=== PATIENT | male | born 1975 | race Caucasian/White ===

== ENCOUNTER → 2020-07-21 12:59 | Outpatient (CLI) | payer OTHER, SELFPAY ==
--- NOTE | ~2020-07-21 | XR_ITS ---
EXAMINATION: XR chest 2V EXAM DATE: 07/21/2020 14:19 INDICATION: Renal cell carcinoma of left kidney. TECHNIQUE: Frontal and lateral projections of the chest obtained and reviewed. There is no prior devi dy for comparison. FINDINGS: Left basilar granuloma. The lungs are otherwise clear. There are no pleural effusions. T he cardiomediastinal silhouette is within normal limits. There is no pneumothorax suspected. There are no osteoblastic or osteolytic lesions identified. IMPRESSION: No acute cardiopulmonary findings. Reviewed, dictated and finalized at location B. MACHINE OPERATOR
--- NOTE | ~2020-07-21 | MR_ITS ---
EXAMINATION: MR abdomen wo/w con DATE: 07/21/2020 14:07 INDICATION: Renal cell carcinoma of left kidney. TECHNIQUE: Magnetic resonance imaging (MRI) of the abdomen was performed without and with 20 mL Multi Velma intravenous contrast. Sequences included coronal T2-weighted FS FSE, coronal and axial FIESTA F S, coronal LAVA-flex, axial LAVA, axial T2-weighted FSE, axial T1-weighted dual-echo FSPGR, axial STI R FSE, and axial DWI. Postcontrast sequences included coronal LAVA-flex and a time course of axial LA VA. COMPARISON: None. FINDINGS: There is diffuse hepatic steatosis. The gallbladder is absent. There is an annular pancreas. The sple en and adrenal glands are normal. There is a 6 mm cyst in right kidney. There are changes of partial left nephrectomy. There are no dilated loops of bowel. There are no pathologically enlarged lymph nod es. There is no free intraperitoneal fluid. IMPRESSION: 1. Changes of partial left nephrectomy. No recurrent or residual neoplasm. 2. Diffuse hepatic steatosis. Reviewed, dictated and finalized at location A. TIVE SERVICES SPECIALIST
[2020-07-21 13:47] LABS: Estimated Glomerular Filt Rate > 60
== END ==
PROVIDERS: PCP Family Medicine
DX: C64.2 Malignant neoplasm of left kidney, except renal pelvis (principal); Z90.5 Acquired absence of kidney; K76.0 Fatty (change of) liver, not elsewhere classified
CPT/HCPCS: 71046; 74183; A9577

== ENCOUNTER → 2021-07-27 09:39 | Outpatient (CLI) | payer OTHER, SELFPAY ==
--- NOTE | ~2021-07-27 | MR_ITS ---
EXAMINATION: MR abdomen wo/w con DATE: 07/27/2021 10:48 INDICATION: Follow-up left kidney renal cell carcinoma post partial nephrectomy TECHNIQUE: Magnetic resonance imaging (MRI) of the abdomen was performed without and with 20 mL Multi rosario intravenous contrast. Sequences included coronal T2-weighted SS-FSE, coronal and axial FS 2D-F IESTA, axial STIR FSE, axial T2-weighted SS-FSE, axial T2-weighted FS SS-FSE, axial diffusion-weighte d SE, axial dual-echo T1-weighted FSPGR, and axial and coronal T1-weighted LAVA. Postcontrast axial T 1-weighted LAVA images were obtained in a time course. Postcontrast coronal T1-weighted LAVA images w ere obtained. COMPARISON: 07/21/2020 FINDINGS: Heart size is normal. No pericardial or pleural effusion. Cholecystectomy clips at the gallbladder fo ssa. Liver, spleen, pancreas and bilateral adrenal glands are normal. 6 mm T2 hyperintense nonenhanci ng right renal cyst. Stable appearance of postoperative change of prior partial nephrectomy at the up per pole the left kidney. No new nodular enhancing soft tissue to suggest residual, recurrent or meta static disease. No pathologically enlarged abdominal lymphadenopathy. Visualized portions of the timothy ls are unremarkable. Mild to moderate lumbar spondylosis with fibrovascular and fibrofatty degenerati ve endplate changes. Bone marrow signal otherwise normal with no evident pathologic marrow replacing process. IMPRESSION: 1. Stable appearance of change of prior partial left nephrectomy. No residual, recurrent or metastati c disease. Reviewed, dictated and finalized at location A. OPERATOR IMPRESSION: 1. Stable appearance of change of prior partial left nephrectomy. No residual, recurrent or metastatic disease.
[2021-07-27 10:17] LABS: Estimated Glomerular Filt Rate > 60
== END ==
DX: Z90.49 Acquired absence of other specified parts of digestive tract (principal); N28.1 Cyst of kidney, acquired; M47.816 Spondylosis without myelopathy or radiculopathy, lumbar region
CPT/HCPCS: 74183; A9577

== ENCOUNTER → 2022-06-30 07:58 | Outpatient (CLI) | payer SELFPAY ==
--- NOTE | ~2022-06-30 | MR_ITS ---
EXAMINATION: MR abdomen wo/w con DATE: 06/30/2022 09:28 INDICATION: Left renal cell carcinoma resected in December 2019 TECHNIQUE: Magnetic resonance imaging (MRI) of the abdomen was performed without and with 20 mL Multi rosario intravenous contrast. Sequences included coronal T2-weighted SS-FSE, coronal and axial FS 2D-F IESTA, axial STIR FSE, axial T2-weighted SS-FSE, axial T2-weighted FS SS-FSE, axial diffusion-weighte d SE, axial dual-echo T1-weighted FSPGR, and axial and coronal T1-weighted LAVA. Postcontrast axial T 1-weighted LAVA images were obtained in a time course. Postcontrast coronal T1-weighted LAVA images w ere obtained. COMPARISON: None. FINDINGS: Heart size is normal. No pericardial or pleural effusion. Mild dependent atelectasis in the bilateral lower lobes. Cholecystectomy clips the gallbladder fossa. Liver, spleen, pancreas and bilateral adre nal glands are normal. 8 mm T2 hyperintense nonenhancing right renal cyst. Stable appearance of posto perative change of prior partial nephrectomy at the upper pole the left kidney. No new nodular enhanc ing soft tissue to suggest residual, recurrent or metastatic disease. No pathologically enlarged abdo puja lymphadenopathy. Visualized portion of the bowels are normal. Mild to moderate lumbar spondylos is with fibrovascular and fibrofatty degenerative endplate changes. No pathologic marrow replacing pr ocess. IMPRESSION: 1. Stable appearance of changes of prior partial left nephrectomy. No residual, recurrent or metastat ic disease. Reviewed, dictated and finalized at location A. EP MECHANIC IMPRESSION: 1. Stable appearance of changes of prior partial left nephrectomy. No residual, recurrent or metastatic disease.
== END ==
PROVIDERS: PCP Family Medicine
DX: C64.2 Malignant neoplasm of left kidney, except renal pelvis (principal)
CPT/HCPCS: 74183; A9577

== ENCOUNTER → 2023-07-06 10:27 | Outpatient (CLI) | payer SELFPAY ==
--- NOTE | ~2023-07-06 | MR_ITS ---
EXAMINATION: MR abdomen wo/w con DATE: 07/06/2023 11:21 INDICATION: Malignant neoplasm of the left kidney TECHNIQUE: Magnetic resonance imaging (MRI) of the abdomen was performed without and with 20 mL Multi rosario intravenous contrast. Sequences included coronal T2-weighted SS-FSE, coronal and axial FS 2D-F IESTA, axial STIR FSE, axial T2-weighted SS-FSE, axial T2-weighted FS SS-FSE, axial diffusion-weighte d SE, axial dual-echo T1-weighted FSPGR, and axial and coronal T1-weighted LAVA. Postcontrast axial T 1-weighted LAVA images were obtained in a time course. Postcontrast coronal T1-weighted LAVA images w ere obtained. COMPARISON: 06/30/2022 FINDINGS: Heart size is normal. No pericardial or pleural effusion. Cholecystectomy clips at the gallbladder fo ssa. Liver, spleen, pancreas and bilateral adrenal glands are normal. Bilateral T2 hyperintense nonen hancing renal cysts measuring 9 mm on the right with 5 mm exophytic cyst on the left.. Stable appeara nce of postoperative change of prior partial nephrectomy at the upper pole the left kidney. No new no dular enhancing soft tissue to suggest residual, recurrent or metastatic disease. No pathologically e nlarged abdominal lymphadenopathy. Visualized portions of bowels are normal. Moderate lumbar spondylo sis with fibrovascular degenerative endplate changes at the left side of L3-L4. IMPRESSION: 1. Stable appearance of changes of prior partial left nephrectomy. No residual, recurrent or metastat ic disease. Reviewed, dictated and finalized at location A. ING ENGINEER IMPRESSION: 1. Stable appearance of changes of prior partial left nephrectomy. No residual, recurrent or metastatic disease.
== END ==
DX: C64.2 Malignant neoplasm of left kidney, except renal pelvis (principal)
CPT/HCPCS: 74183; A9577

== ENCOUNTER 2024-07-22 08:40 | Outpatient (CLI) | payer BC, SELFPAY ==
--- NOTE | ~2024-07-22 | MR_ITS ---
EXAMINATION: MR abdomen wo/w con DATE: 07/22/2024 09:46 INDICATION: Renal cell carcinoma of the left kidney TECHNIQUE: Magnetic resonance imaging (MRI) of the abdomen was performed without and with 20 mL Multi rosario intravenous contrast. Sequences included coronal T2-weighted SS-FSE, coronal and axial FS 2D-F IESTA, axial STIR FSE, axial T2-weighted SS-FSE, axial T2-weighted FS SS-FSE, axial diffusion-weighte d SE, axial dual-echo T1-weighted FSPGR, and axial and coronal T1-weighted LAVA. Postcontrast axial T 1-weighted LAVA images were obtained in a time course. Postcontrast coronal T1-weighted LAVA images w ere obtained. COMPARISON: 07/06/2023 FINDINGS: Heart size is normal. No pericardial or pleural effusion. Cholecystectomy clips at the gallbladder fo ssa. Liver, spleen, pancreas and bilateral adrenal glands are normal. Bilateral T2 hyperintense nonen hancing renal cysts measuring 10 mm on the right with 5 mm exophytic cyst on the left.. Stable appear ance of postoperative change of prior partial nephrectomy versus ablation at the upper pole the left kidney. No new nodular enhancing soft tissue to suggest residual, recurrent or metastatic disease. No pathologically enlarged abdominal lymphadenopathy. Visualized portions of bowels are normal. Moderat e lumbar spondylosis with fibrofatty degenerative endplate changes at the left side of L3-L4 and righ t side of L4-L5. IMPRESSION: 1. Stable appearance of changes of prior partial left nephrectomy/ablation. No residual, recurrent or metastatic disease. Reviewed, dictated and finalized at location A. OR SECURITY ANALYST
== END 2024-07-22 08:41 | disposition home or self-care (01) ==
DX: C64.2 Malignant neoplasm of left kidney, except renal pelvis (principal)
CPT/HCPCS: 74183; A9577